=== PATIENT | female | born 1960 | race Caucasian/White ===

== ENCOUNTER 2020-07-09 16:49 | Emergency (ER) | payer OTHER ==
[~2020-07-09] VITALS: Ht 157.5 cm; Wt 82.1 kg
[2020-07-09] MEDS ORDERED: SYNTHROID125 MCG (17:01)
== END 2020-07-09 20:18 | disposition home or self-care (01) ==
LOC: ER 16:49
DX: I87.2 Venous insufficiency (chronic) (peripheral) (principal)

== ENCOUNTER 2021-05-30 03:05 | Inpatient (IN) | payer OTHER ==
[~2021-05-30] VITALS: Ht 157.5 cm; Wt 88.9 kg
[~2021-05-30 03:05] MED LIST: SYNTHROID125 MCG
[2021-05-30] MEDS ORDERED: SYNTHROID100 MCG (03:22)
== END 2021-06-12 17:14 | disposition home or self-care (01) | DRG 353 ==
LOC: ER 03:05 → MEDJ 14:59
PROVIDERS: ADMIT Surgery; ATTEND Surgery
PROC: 0DBU0ZZ Excision of Omentum, Open Approach (ICD-10-PCS; 2021-05-30)
PROC: BW2110Z Computerized Tomography (CT Scan) of Abdomen and Pelvis using Low Osmolar Contrast, Unenhanced and Enhanced (ICD-10-PCS; 2021-05-30)
PROC: 3E0F7GC Introduction of Other Therapeutic Substance into Respiratory Tract, Via Natural or Artificial Opening (ICD-10-PCS; 2021-05-30)
PROC: 4A12X4Z Monitoring of Cardiac Electrical Activity, External Approach (ICD-10-PCS; 2021-05-30)
PROC: 0WUF0JZ Supplement Abdominal Wall with Synthetic Substitute, Open Approach (ICD-10-PCS; principal; 2021-05-30 15:30)
PROC: BW25ZZZ Computerized Tomography (CT Scan) of Chest, Abdomen and Pelvis (ICD-10-PCS; 2021-06-04)
PROC: 4A033R1 Measurement of Arterial Saturation, Peripheral, Percutaneous Approach (ICD-10-PCS; 2021-06-04)
DX: K42.0 Umbilical hernia with obstruction, without gangrene (principal); J69.8 Pneumonitis due to inhalation of other solids and liquids; K56.699 Other intestinal obstruction unspecified as to partial versus complete obstruction; J95.89 Other postprocedural complications and disorders of respiratory system, not elsewhere classified; K43.0 Incisional hernia with obstruction, without gangrene; T17.910A Gastric contents in respiratory tract, part unspecified causing asphyxiation, initial encounter; Y65.8 Other specified misadventures during surgical and medical care; Y81.8 Miscellaneous general- and plastic-surgery devices associated with adverse incidents, not elsewhere classified; Y92.230 Patient room in hospital as the place of occurrence of the external cause; D72.828 Other elevated white blood cell count; Z20.822 Contact with and (suspected) exposure to COVID-19